=== PATIENT | male | born 1940 | race Caucasian/White ===

== ENCOUNTER 2019-01-02 16:20 | Emergency (ER) | payer MEDICARE ==
[2019-01-02] MEDS ORDERED: Sodium Chloride 0.9% 1000 ML 1,000 ML IV STA (16:35)
--- NOTE | 2019-01-02 16:43 | ERPHSYRPT ---
- History of Present Illness Time Seen by Provider: 01/02/19 16:30 Source: patient, family Exam Limitations: no limitations Physician History: Bleeding from his rectum for 3 days intermittently. Patient had a cardiac stent placed on 12/23/2018 at [facility] and placed on daily Plavix. Patient has felt short of breath, which is a chronic issue, but feels worse over the past 5 days. Timing/Duration: day(s) (3) Severity: mild Modifying Factors: Worsens With: movement Associated Symptoms: No nausea, No vomiting, No abdominal pain, No shortness of breath, No heartburn, No diaphoresis, No cough, No chills, No chest pain, No fever, No headaches, No loss of appetite, No malaise, No rash, No syncope, No seizure, No weakness Allergies/Adverse Reactions: No Known Drug Allergies Allergy (Verified 01/02/19 16:40) Home Medications: Aspirin EC 81 mg [Ecotrin 81 mg] 81 mg PO DAILY 01/02/19 [History] Benazepril HCl 5 mg PO DAILY 01/02/19 [History] Clopidogrel Bisulfate [Clopidogrel] 75 mg PO DAILY 01/02/19 [History] Glimepiride 2 mg [Amaryl 2 MG] 1 mg PO DAILY 01/02/19 [History] Metoprolol Tartrate 25 mg PO BID 01/02/19 [History] Simvastatin 40 mg PO DAILY 01/02/19 [History] - Review of Systems Constitutional: No Fever, No Chills, No Fatigue Eyes: No Eye Pain, No Vision Changes Ears, Nose, & Throat: No Mouth Pain, No Painful Swallowing Respiratory: Dyspnea (chronic issue, worse with laying down), No Cough, 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) Cardiac: No Chest Pain, No Palpitations, No Syncope Abdominal/Gastrointestinal: No Abdominal Pain, No Nausea, No Vomiting, No Diarrhea, No Hematemesis, No Melena Genitourinary Symptoms: No Dysuria, No Frequency, No Hematuria, No Flank Pain Musculoskeletal: No Back Pain, No Neck Pain Skin: No Pruritis, No Rash Neurological: No Focal Weakness, No Paralysis, No Parasthesia, No Tremors Psychological: No Anxiety, No Emotional Lability Hematologic/Lymphatic: No Easy Bleeding, No Easy Bruising All Other Systems: Reviewed and Negative - Past Medical History ENT History: Cataracts Cardiac History: Coronary Artery Disease, High Cholesterol Endocrine Medical History: Diabetes Type II History: Renal Disease, Other (Prostate Cancer) - Nursing Vital Signs Nursing Vital Signs: Initial Vital Signs Temperature 98.1 F 01/02/19 16:22 Pulse Rate 102 H 01/02/19 16:22 Blood Pressure 135/76 01/02/19 16:22 O2 Sat by Pulse Oximetry 97 01/02/19 16:22 Pain Scale Pain Intensity 0 - Physical Exam General Appearance: no apparent distress Eye Exam: PERRL/EOMI, eyes nml inspection, No scleral icterus Ears, Nose, Throat Exam: pharynx normal, moist mucous membranes Neck Exam: normal inspection, non-tender, supple, full range of motion, No meningismus, No Brudzinski, No lymphadenopathy Respiratory Exam: normal breath sounds, lungs clear, airway intact, diminished breath sounds, No respiratory distress, No accessory muscle use, No prolonged expirations, No crackles/rales, No rhonchi, No wheezing, No stridor, No pleural rub Cardiovascular Exam: regular rate/rhythm, normal heart sounds, normal peripheral pulses, capillary refill <2 sec Gastrointestinal/Abdomen Exam: soft, normal bowel sounds, No tenderness, No distention, No mass, No guarding, No ecchymosis, No rebound Male Genitalia Exam: normal genitalia Rectal Exam: normal rectal tone, hemorrhoids (positive small clots from one opened external hemorrhoid), blood (small amount with no active bleeding), other (examination chaperoned by Adan Muir RN), No black stool Back Exam: No CVA tenderness, No vertebral tenderness Extremity Exam: normal inspection, normal range of motion, pelvis stable, No calf tenderness, No lacerations, No bob's sign, No pedal edema, No swelling Neurologic Exam: alert, oriented x 3, cooperative, knife sharpener II-XII nml as tested, normal mood/affect Skin Exam: normal color, warm, dry, No rash, No jaundice, No cyanosis SpO2 Interpretation: normal O2 Delivery: Room Air - Course Nursing assessment & vital signs reviewed: Yes EKG Interpreted by Me: RATE (102), Sinus Tach, NORMAL AXIS, NORMAL INTERVALS, NORMAL QRS, NORMAL ST-T, Other (negative previous EKG for comparison) - Radiology Exams Chest X-ray Interpretation: Interpreted by me, Reviewed by me, No Fracture, No Pneumonia, No Pneumothorax, No Infiltrates, Other (pulmonary vascular congestion ) Ordered Tests: Active Orders 24 hr Category Date Time Status Surgeon Assistant STAT Care 01/02/19 16:36 Active EKG-ER Only STAT Care 01/02/19 16:35 Active IV Insertion STAT Care 01/02/19 16:35 Active Orthostatic Vital Signs STAT Care 01/02/19 16:37 Active CHEST 1 VIEW (PORTABLE) Stat Exams 01/02/19 16:35 Taken CBC W DIFF Stat Lab 01/02/19 16:45 Completed CMP Stat Lab 01/02/19 16:45 Completed LIPASE Stat Lab 01/02/19 16:45 Completed Lactic Acid Stat Lab 01/02/19 16:37 Completed NT PRO BNP Stat Lab 01/02/19 16:45 Completed PROTIME WITH INR Stat Lab 01/02/19 16:45 Completed PTT Stat Lab 01/02/19 16:45 Completed TROPONIN Stat Lab 01/02/19 16:45 Completed UA W/RFX UR CULTURE Stat Lab 01/02/19 17:42 Completed Medication Summary Discontinued Medications Generic Name Dose Route Start Last Admin Trade Name Freq PRN Reason Stop Dose Admin Sodium Chloride 1,000 mls @ 999 mls/hr 01/02/19 16:35 01/02/19 18:20 Sodium Chloride 0.9% 1000 Ml IV 01/02/19 17:35 Infused .Q1H1M STA Infusion Sodium Chloride Confirm 01/02/19 16:49 Sodium Chloride 0.9% 1000 Ml Administered 01/02/19 16:50 Dose 1,000 mls @ ud .ROUTE .K-MED ONE Lab/Rad Data: Laboratory Result Diagrams 01/02/19 16:45 01/02/19 16:45 Laboratory Results 01/02/19 01/02/19 01/02/19 Range/Units 17:42 16:45 16:45 WBC (4.0-10.5) K/mm3 RBC (4.1-5.6) M/mm3 Hgb (12.5-18.0) gm/dl Hct (42-50) % MCV (78-100) fl MCH (26-32) pg MCHC (32-36) g/dl RDW (11.5-14.0) % Plt Count (150-450) K/mm3 MPV (6-9.5) fl Gran % (36.0-66.0) % Eos # (Auto) (0-0.5) Absolute Lymphs (auto) (1.0-4.6) Absolute Monos (auto) (0.0-1.3) Lymphocytes % (24.0-44.0) % Monocytes % (0.0-12.0) % Eosinophils % (0.00-5.0) % Basophils % (0.0-0.4) % Absolute Granulocytes (1.4-6.9) Basophils # (0-0.4) PT 12.3 (8.83-12.87) SECONDS INR 1.09 (0.8-3.0) APTT 30.6 (24.1-36.1) SECONDS Sodium (137-145) mmol/L Potassium (3.5-5.1) mmol/L Chloride (98-107) mmol/L Carbon Dioxide (22-30) mmol/L Anion Gap (5-15) MEQ/L BUN (9-20) mg/dL Creatinine (0.66-1.25) mg/dL Estimated GFR ML/MIN Glucose (74-106) mg/dL Lactic Acid (0.4-2.0) Calcium (8.4-10.2) mg/dL Total Bilirubin (0.2-1.3) mg/dL AST (17-59) U/L ALT (0-50) U/L Alkaline Phosphatase (38-126) U/L Troponin I 0.016 (0.000-0.034) ng/mL NT-Pro-B Natriuret Pep 9900 H (0-1800) pg/mL Serum Total Protein (6.3-8.2) g/dL Albumin (3.5-5.0) g/dL Lipase (23-300) U/L Urine Color YELLOW (YELLOW) Urine Appearance CLEAR (CLEAR) Urine pH 5.0 (5-6) Ur Specific Sterrett 1.019 (1.005-1.025) Urine Protein NEGATIVE (Negative) Urine Ketones NEGATIVE (NEGATIVE) Urine Blood NEGATIVE (0-5) Kev/ul Urine Nitrite NEGATIVE (NEGATIVE) Urine Bilirubin NEGATIVE (NEGATIVE) Urine Urobilinogen NEGATIVE (0-1) mg/dL Ur Leukocyte Esterase TRACE (NEGATIVE) Urine WBC (Auto) 0-2 (0-5) /HPF Urine RBC (Auto) NONE (0-2) /HPF U Epithel Cells (Auto) NONE (FEW) /HPF Urine Bacteria (Auto) NONE SEEN (NEGATIVE) /HPF Urine Mucus (Auto) SLIGHT (NEGATIVE) /HPF Urine Culture Reflexed NO (NO) Urine Glucose NEGATIVE (NEGATIVE) mg/dL 01/02/19 01/02/19 01/02/19 Range/Units 16:45 16:45 16:37 WBC 9.3 (4.0-10.5) K/mm3 RBC 4.39 (4.1-5.6) M/mm3 Hgb 12.8 (12.5-18.0) gm/dl Hct 40.5 L (42-50) % MCV 92.3 (78-100) fl MCH 29.2 (26-32) pg MCHC 31.6 L (32-36) g/dl RDW 16.7 H (11.5-14.0) % Plt Count 249 (150-450) K/mm3 MPV 10.9 H (6-9.5) fl Gran % 48.4 (36.0-66.0) % Eos # (Auto) 0.78 H (0-0.5) Absolute Lymphs (auto) 2.96 (1.0-4.6) Absolute Monos (auto) 1.01 (0.0-1.3) Lymphocytes % 31.9 (24.0-44.0) % Monocytes % 10.9 (0.0-12.0) % Eosinophils % 8.4 H (0.00-5.0) % Basophils % 0.4 (0.0-0.4) % Absolute Granulocytes 4.48 (1.4-6.9) Basophils # 0.04 (0-0.4) PT (8.83-12.87) SECONDS INR (0.8-3.0) APTT (24.1-36.1) SECONDS Sodium 145 (137-145) mmol/L Potassium 4.3 (3.5-5.1) mmol/L Chloride 109 H (98-107) mmol/L Carbon Dioxide 25 (22-30) mmol/L Anion Gap 15.2 H (5-15) MEQ/L BUN 36 H (9-20) mg/dL Creatinine 3.16 H (0.66-1.25) mg/dL Estimated GFR 20.4 ML/MIN Glucose 102 (74-106) mg/dL Lactic Acid 1.7 (0.4-2.0) Calcium 9.2 (8.4-10.2) mg/dL Total Bilirubin 0.40 (0.2-1.3) mg/dL AST 19 (17-59) U/L ALT 17 (0-50) U/L Alkaline Phosphatase 88 (38-126) U/L Troponin I (0.000-0.034) ng/mL NT-Pro-B Natriuret Pep (0-1800) pg/mL Serum Total Protein 7.0 (6.3-8.2) g/dL Albumin 3.5 (3.5-5.0) g/dL Lipase 87 (23-300) U/L Urine Color (YELLOW) Urine Appearance (CLEAR) Urine pH (5-6) Ur Specific Sterrett (1.005-1.025) Urine Protein (Negative) Urine Ketones (NEGATIVE) Urine Blood (0-5) Kev/ul Urine Nitrite (NEGATIVE) Urine Bilirubin (NEGATIVE) Urine Urobilinogen (0-1) mg/dL Ur Leukocyte Esterase (NEGATIVE) Urine WBC (Auto) (0-5) /HPF Urine RBC (Auto) (0-2) /HPF U Epithel Cells (Auto) (FEW) /HPF Urine Bacteria (Auto) (NEGATIVE) /HPF Urine Mucus (Auto) (NEGATIVE) /HPF Urine Culture Reflexed (NO) Urine Glucose (NEGATIVE) mg/dL - Progress Progress: unchanged Progress Note: 01/02/19 18:[address] Perkins, ED attending at [facility] in [place], [place]. Dr Perkins accepted the patient for transfer to [facility] emergency department. 01/02/19 19:06 Patient is doing well with oxygen via nasal cannula Counseled pt/family regarding: lab results, diagnosis, need for follow-up, rad results - Departure Departure Disposition: Transfer ([facility] in [place], [place]) Clinical Impression: Acute pulmonary edema, Acute renal insufficiency, Bleeding external hemorrhoids , Elevated blood pressure reading without diagnosis of hypertension Condition: Fair Critical Care Time: Yes Referrals: ALICIA MORGAN [Primary Care Provider] - Plan of Treatment: Patient transferred to the ED at [facility] accepted by Dr Perkins, ED attending
[2019-01-02] MEDS ORDERED: Sodium Chloride 0.9% 1000 ML 1,000 ML ONE (16:49)
[2019-01-02 16:52] LABS: Absolute Neutrophil Ct (ANC) 4.48 (1.4-6.9); BASOPHIL % 0.4 % (0.0-0.4); Basophil (Absolute #) 0.04 (0-0.4); Eosinophil % 8.4 % (0.00-5.0); Eosinophil (Absolute #) 0.78 (0-0.5); Hematocrit 40.5 % (42-50); Hemoglobin 12.8 gm/dl (12.5-18.0); Lymphocyte (Absolute #) 2.96 (1.0-4.6); Lymphocytes % 31.9 % (24.0-44.0); Mean Cell Volume 92.3 fl (78-100); Mean Corpuscular Hemoglobin 29.2 pg (26-32); Mean Corpuscular Hgb Concent. 31.6 g/dl (32-36); Mean Platelet Volume 10.9 fl (6-9.5); Monocyte (Absolute #) 1.01 (0.0-1.3); Monocytes % 10.9 % (0.0-12.0); Neutrophil % 48.4 % (36.0-66.0); Platelet Count 249 K/mm3 (150-450); Red Blood Count 4.39 M/mm3 (4.1-5.6); Red Cell Distribution Width 16.7 % (11.5-14.0); White Blood Count 9.3 K/mm3 (4.0-10.5)
[2019-01-02 16:56] LABS: INR 1.09 (0.8-3.0); PROTIME 12.3 SECONDS (8.83-12.87)
[2019-01-02 16:59] LABS: PTT 30.6 SECONDS (24.1-36.1)
[2019-01-02 17:01] LABS: ALBUMIN 3.5 g/dL (3.5-5.0); ANION GAP 15.2 MEQ/L (5-15); BILIRUBIN,TOTAL 0.4 mg/dL (0.2-1.3); Calcium 9.2 mg/dL (8.4-10.2); Creatinine 1 3.16 mg/dL (0.66-1.25); Potassium 4.3 mmol/L (3.5-5.1)
[2019-01-02 17:17] LABS: TROPONIN 0.016 ng/mL (0.000-0.034)
[2019-01-02 17:53] LABS: Appearance CLEAR (CLEAR); Bilirubin NEGATIVE (NEGATIVE); Blood NEGATIVE Ery/ul (0-5); Glucose NEGATIVE (NEGATIVE); Ketones NEGATIVE (NEGATIVE); Leukocyte Esterase TRACE (NEGATIVE); Mucus SLIGHT /HPF (NEGATIVE); Nitrite NEGATIVE (NEGATIVE); Protein,Urine Dip NEGATIVE (Negative); Specific Gravity 1.019 (1.005-1.025); Urobilinogen NEGATIVE mg/dL (0-1); WBC 0-2 /HPF (0-5)
[2019-01-02 18:00] LABS: Bacteria NONE SEEN /HPF (NEGATIVE)
[2019-01-02] MEDS ORDERED: Lasix 40 MG/4 ML IV ONE (19:07)
[2019-01-02] MEDS ORDERED: Lasix 40 MG/4 ML ONE (19:10)
[2019-01-02 19:20] VITALS: BP 145/85; PULSE 114; O2SAT 92
--- NOTE | 2019-01-02 21:27 | XRAY ---
Indication: Dyspnea. Comparison: February 23, 2010. Portable chest again demonstrates chronic lung markings with new bibasilar interstitial alveolar opacities and small effusions. Heart is not enlarged. 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
== END 2019-01-02 19:55 | disposition short-term general hospital (02) ==
LOC: ED 16:20
DX: J81.0 Acute pulmonary edema (principal); N28.9 Disorder of kidney and ureter, unspecified; K64.5 Perianal venous thrombosis; R03.0 Elevated blood-pressure reading, without diagnosis of hypertension; I25.10 Atherosclerotic heart disease of native coronary artery without angina pectoris; E78.00 Pure hypercholesterolemia, unspecified; E11.9 Type 2 diabetes mellitus without complications; Z85.46 Personal history of malignant neoplasm of prostate; Z79.899 Other long term (current) drug therapy; K62.5 Hemorrhage of anus and rectum
CPT/HCPCS: 36000; 36415; 71045; 80053; 81001; 83605; 83690; 83880; 84484; 85025; 85610; 85730; 93005; 93041; 96360; 96374; 99285; J1940